=== PATIENT | male | born 1950 | race Caucasian/White ===

== ENCOUNTER 2018-07-09 20:27 | Emergency (ER) | payer BC, MEDICARE ==
--- NOTE | 2018-07-09 21:58 | RAD ---
PA AND LATERAL VIEWS CHEST: HISTORY: Fall. Left-sided chest pain. FINDINGS: The heart size is normal. The lungs are well expanded without focal areas of consolidation, pneumoth oraces, or pleural effusions. No definite acute osseous abnormalities are seen. IMPRESSION: No radiographic evidence of acute cardiopulmonary process. POS: [facility]
--- NOTE | 2018-07-09 22:09 | RAD ---
LEFT HIP TWO VIEWS: HISTORY: Fall with injury to hip. FINDINGS: A left hip prosthesis is in place. Components appear in adequate position and alignment. No evidenc e of acute fracture. IMPRESSION: No acute findings. POS: [facility]
--- NOTE | 2018-07-09 22:12 | RAD ---
LEFT KNEE FOUR VIEWS: HISTORY: Fall with injury to knee. FINDINGS: No evidence of fracture. No evidence of joint effusion. Mild degenerative change. IMPRESSION: No acute finding. POS: [facility]
== END 2018-07-09 22:44 | disposition home or self-care (01) ==
LOC: ERS 20:27
DX: S20.212A Contusion of left front wall of thorax, initial encounter (principal); S70.02XA Contusion of left hip, initial encounter; S80.02XA Contusion of left knee, initial encounter; K21.9 Gastro-esophageal reflux disease without esophagitis; E11.9 Type 2 diabetes mellitus without complications; E78.5 Hyperlipidemia, unspecified; I10 Essential (primary) hypertension; N40.0 Benign prostatic hyperplasia without lower urinary tract symptoms; W01.0XXA Fall on same level from slipping, tripping and stumbling without subsequent striking against object, initial encounter
CPT/HCPCS: 71046